=== PATIENT | female | born 1950 | race Caucasian/White ===

== ENCOUNTER 2016-08-30 06:10 | Day surgery (SDC) | payer OTHER ==
[2016-08-29 10:38] LABS: HEMATOCRIT 37.4 % (36.0-48.0); HEMOGLOBIN 12.9 g/dL (12.0-16.0)
[2016-08-29 14:22] LABS: BUN (BLOOD UREA NITROGEN) 13 MG/DL (6-23); CALCIUM, SERUM 9.6 MG/DL (8.5-10.4); CHLORIDE, SERUM 99 MMOL/L (96-112); CO2 (CARBON DIOXIDE) 30 MMOL/L (24-34); CREATININE 0.76 MG/DL (0.55-1.02); GFR AFRICAN AMERICAN 95 ML/MIN (>=60); GFR NON AFRICAN AMERICAN 82 ML/MIN (>=60); GLUCOSE, SERUM 126 MG/DL (60-99); POTASSIUM, SERUM 3.4 MMOL/L (3.5-5.3); SODIUM, SERUM 139 MMOL/L (135-148)
--- NOTE | ~2016-08-30 | OP ---
Record Of Operation [facility] [address] [place]. [address] NAME: ЕЛЕНА GOMEZ : 50 [place]US [place] [facility] [place] [id number] AGE: 66 ADM/REG DATE : 08/30/16 MR#: [id number] REPORT SERV DATE: 08/30/16 DICTATED BY: JEFFREY MA DATE: 08/30/16 REPORT STATUS : Draft TRANSCRIBED BY: TISH DATE: 08/30/16 DATE OF PROCEDURE: 08/30/2016 PREOPERATIVE DIAGNOSES: 1. Nonhealing right buttock wound. 2. Hypertension. 3. Obstructive sleep apnea. 4. Diabetes mellitus. 5. Irritable bowel syndrome. 6. Hypothyroidism. 7. Attention deficit hyperactivity disorder. POSTOPERATIVE DIAGNOSES: 1. Nonhealing right buttock wound. 2. Hypertension. 3. Obstructive sleep apnea. 4. Diabetes mellitus. 5. Irritable bowel syndrome. 6. Hypothyroidism. 7. Attention deficit hyperactivity disorder. PROCEDURE: Excision of a right buttock nonhealing wound and sinus with layered closure (4.5 cm). ANESTHESIA: General. TECHNICAL SPECIALIST CYTOGENETICS: [place]. COMPLICATIONS: None. DRAINS: None. ESTIMATED BLOOD LOSS: 10 mL. OPERATIVE TECHNIQUE: The patient was brought to the operating room and placed on the table in supine position. She had preoperative IV antibiotics. She had sequential hose in place. She voided prior to the procedure. She underwent general endotracheal anesthesia and was prepped and draped in sterile fashion and a time-out was completed with the right side elevated. Local anesthesia was instilled around the sinus. An elliptical incision was made transversely to excise the sinus and surrounding tissue. The incision was carried down into the muscle using electrocautery and all of the sinus and inflammatory tissue was excised. The wound was then thoroughly irrigated and hemostasis was obtained. The wound was closed in layers. The deep subcutaneous tissues were reapproximated using interrupted 2-0 Vicryl sutures. The superficial subcutaneous tissues were then reapproximated using interrupted 3- 0 Vicryl sutures. The skin edges were then reapproximated using interrupted simple 3-0 Prolene sutures. The Aquacel Ag surgical dressing was applied. She was extubated and taken Record Of Operation [facility] [address] [place]. [address] NAME: ЕЛЕНА GOMEZ DOB: [birth year] STATUS : [place] [facility] [place] [id number] AGE: 66 ADM/REG DATE : 08/30/16 MR#: [id number] REPORT SERV DATE: 08/30/16 DICTATED BY: JEFFREY MA DATE: 08/30/16 REPORT STATUS : Draft TRANSCRIBED BY: MODL DATE: 08/30/16 to the recovery room in stable condition. All sponge and needle counts reported correct. /TISH Jeffrey Ma M.D. / [id number] CC: Barbi Acevedo M.D.
[~2016-08-30 06:10] MED LIST: ADDER10 PO; CENTRUM PO; CYMBALTA30 PO; CYMBALTA60 PO; GLUCOPHAGE1000 MG PO; GLUCOPHXR PO; KLONO5 PO; LEVOTHYROXIN50 MCG PO; MCZ125 PO; MICRO-K10 MEQ PO; PREM625 PO; SYN88 PO; TENORETIC1 TAB PO
== END 2016-08-30 14:07 | disposition home or self-care (01) ==
LOC: SDC 06:10
PROVIDERS: Surgery
PROC: 0JQ90ZZ Repair Buttock Subcutaneous Tissue and Fascia, Open Approach (ICD-10-PCS; 2016-08-30)
PROC: 0KBN0ZZ Excision of Right Hip Muscle, Open Approach (ICD-10-PCS; principal; 2016-08-30 07:45)
DX: L98.419 Non-pressure chronic ulcer of buttock with unspecified severity (principal); L02.31 Cutaneous abscess of buttock; I10 Essential (primary) hypertension; G47.33 Obstructive sleep apnea (adult) (pediatric); E11.9 Type 2 diabetes mellitus without complications; K58.9 Irritable bowel syndrome, unspecified; M79.7 Fibromyalgia; E03.9 Hypothyroidism, unspecified; F90.9 Attention-deficit hyperactivity disorder, unspecified type; Z88.0 Allergy status to penicillin; Z88.2 Allergy status to sulfonamides; Z88.1 Allergy status to other antibiotic agents; Z79.899 Other long term (current) drug therapy; Z98.890 Other specified postprocedural states; Z90.710 Acquired absence of both cervix and uterus
CPT/HCPCS: 80048; 82962; 85014; 85018; 87070; 87075; 87205; 88304; 88311; 93005; A9270-GY; J2250; J2405; J2710; J3010; J3370